=== PATIENT | female | born 1995 | race Caucasian/White ===

== ENCOUNTER → 2016-04-16 | Outpatient (CLI) | payer OTHER | END | disposition home or self-care (01) | LOC: RAD.S 14:08 | DX: O20.9 Hemorrhage in early pregnancy, unspecified (principal) ==

== ENCOUNTER → 2016-04-20 | Outpatient (CLI) | payer OTHER | END | disposition home or self-care (01) | LOC: RAD.S 13:56 | DX: O20.9 Hemorrhage in early pregnancy, unspecified (principal) ==

== ENCOUNTER → 2016-04-24 | Outpatient (CLI) | payer OTHER | END | disposition home or self-care (01) | LOC: RAD.S 09:14 | DX: Z34.90 Encounter for supervision of normal pregnancy, unspecified, unspecified trimester (principal) ==

== ENCOUNTER 2016-05-14 20:13 | Emergency (ER) | payer OTHER ==
--- NOTE | 2016-05-22 21:19 | ER ---
ADMIT: 05/14/2016 RM/LOC: ER [facility] MR#: [id number] [id number] [id number] [address] [place] [address] Emergency Room Report SEX: F AGE: 21 : 1995 DATE: 05/14/2016 ADDENDUM: CHIEF COMPLAINT: Right lower quadrant pain. HISTORY OF PRESENT ILLNESS: This is a 21-year-old female who noticed that she has an ectopic . She was given methotrexate a couple weeks ago. She is being followed by Dr. Juarez's office. She had an ultrasound just 5 days ago that looked okay at that time, and she had a quant of 1100. The reason she comes in today is because she said she has had a little more increased bleeding and more pain. Her quant here is 319. She has A positive blood. Her CBC is normal except for white count of 10.8. Ultrasound does show a 5 cm adnexal mass with a small amount of free fluid. I did get a hold of Dr. Russ in [place]. We are going to transfer the patient to [facility]. He is okay with the patient going by private car. I gave the patient the option of going by private car ambulance. They also want to go by private car. They refused the ambulance. CLINICAL IMPRESSION: Ectopic . LILLY Herron / John Tesfaye MD / higinio JOB #: [id number] CC: Clint Lin MD, Attending Physician UNKNOWN, Family Physician
== END 2016-05-14 23:10 | disposition short-term general hospital (02) ==
LOC: ER 20:13
DX: O00.90 Unspecified ectopic pregnancy without intrauterine pregnancy (principal); O99.281 Endocrine, nutritional and metabolic diseases complicating pregnancy, first trimester; E03.9 Hypothyroidism, unspecified; O99.331 Smoking (tobacco) complicating pregnancy, first trimester; Z3A.00 Weeks of gestation of pregnancy not specified